=== PATIENT | male | born 1995 | race Caucasian/White ===

== ENCOUNTER 2017-01-09 20:46 | Emergency (ER) | payer SELFPAY | END 2017-01-09 21:30 | disposition left against medical advice (07) | LOC: D.ER 20:46 | DX: L02.31 Cutaneous abscess of buttock (principal) ==

== ENCOUNTER 2017-07-13 15:57 | Emergency (ER) | payer SELFPAY | END 2017-07-13 18:45 | disposition home or self-care (01) | LOC: D.ER 15:57 | DX: L25.9 Unspecified contact dermatitis, unspecified cause (principal) ==

== ENCOUNTER 2018-06-03 16:30 | Emergency (ER) | payer SELFPAY ==
[~2018-06-03] VITALS: Ht 180.3 cm; Wt 86.4 kg
[2018-06-03 17:11] VITALS: BP 143/97; Ht 180.3 cm; Wt 86.4 kg
== END 2018-06-03 21:34 | disposition left against medical advice (07) ==
LOC: D.ER 16:30
DX: M54.9 Dorsalgia, unspecified (principal)